=== PATIENT | female | born 1955 | race Caucasian/White ===

== ENCOUNTER 2020-06-06 06:41 | Outpatient (RCR) | payer MEDICARE, SELFPAY ==
[2020-06-05 12:56] LABS: Hemoglobin 5.2 g/dL (12.0-15.0)
[2020-06-05 12:57] LABS: Hematocrit 19.6 % (37.0-47.0)
[2020-06-06] VITALS (9 sets, daily range): BP systolic 155–180; BP diastolic 72–91; PULSE 89–97; RESP 14–16; TEMP 36.3–36.8; O2SAT 98–100
== END 2020-09-03 23:59 | disposition home or self-care (01) ==
LOC: ANHCPCTRAN 06:41
PROVIDERS: PCP Family Medicine Adolescent Medicine; Visit Provider Family Medicine Adolescent Medicine
DX: D50.9 Iron deficiency anemia, unspecified (principal); R06.02 Shortness of breath
CPT/HCPCS: 36415; 36430; 85014; 85018; 86850; 86900; 86901; 86920; J7050; P9016

== ENCOUNTER → 2020-06-23 14:20 | Outpatient (CLI) | payer MEDICARE, SELFPAY ==
--- NOTE | ~2020-06-23 | XR_ITS ---
EXAMINATION: XR chest 2V DATE: 06/23/2020 14:41 INDICATION: Shortness of breath. TECHNIQUE: Frontal and lateral views of the chest were obtained. COMPARISON: Chest CT 11/11/2017, chest single view 11/09/17 FINDINGS: There are small pleural effusions. There is mild atelectasis at left lung base. No pneumoth orax. Cardiomegaly is noted. There are surgical clips in the abdomen. IMPRESSION: 1. Small pleural effusions. 2. Cardiomegaly. Reviewed, dictated and finalized at location A. NISATIONAL PSYCHOLOGIST
== END ==
PROVIDERS: PCP Family Medicine Adolescent Medicine; Visit Provider Physician Assistant
DX: R06.02 Shortness of breath (principal); I51.7 Cardiomegaly; J90 Pleural effusion, not elsewhere classified
CPT/HCPCS: 71046

== ENCOUNTER 2021-06-26 07:29 | Outpatient (RCR) | payer MEDICARE, SELFPAY ==
[2021-06-25 08:49] LABS: Hematocrit 21.7 % (37.0-47.0)
[2021-06-25 12:08] LABS: Hemoglobin 6.3 g/dL (12.0-15.0)
[2021-06-26 09:05] VITALS: BP 162/71; PULSE 90; RESP 16; TEMP 36.4; O2SAT 100
[2021-06-26] MEDS: SODIUM CHLORIDE 0.9% IV 250 ML 30 ML IV CONT (09:05)
[2021-06-26 09:20] VITALS: BP 156/72; PULSE 98; RESP 16; TEMP 36.2; O2SAT 100
[2021-06-26 10:20] VITALS: BP 152/70; PULSE 82; RESP 16; TEMP 36.2; O2SAT 99
[2021-06-26 11:20] VITALS: BP 180/77; PULSE 82; RESP 16; TEMP 36.3; O2SAT 100
[2021-06-26 11:55] VITALS: BP 177/69; PULSE 78; RESP 16; TEMP 36.3; O2SAT 100
== END 2021-09-23 23:59 | disposition home or self-care (01) ==
LOC: ANHCPCTRAN 07:29
PROVIDERS: PCP Family Medicine Adolescent Medicine; Visit Provider Physician Assistant
DX: D64.9 Anemia, unspecified (principal)
CPT/HCPCS: 36415; 36430; 85014; 85018; 86850; 86900; 86901; 86920; J7050; P9016

== ENCOUNTER 2021-08-21 00:36 | Day surgery (SDC) | payer MEDICARE, SELFPAY ==
[2021-08-17 15:06] VITALS: BMI 29.2
--- NOTE | 2021-08-20 09:30 | P.PNAN_ITS ---
Anes - Initial Pre Proc Eval Procedure: Operation Date: 08/21/21 08:15 Proposed Procedures p Esophagogastroduodenoscopy & Colonoscopy - Mason Boo MD Date/Time: 08/20/21 09:30 Surgeon: Mason Boo MD Pre Op Diagnosis: ZOILA Patient Data Age: 65 Gender: F Height: 1.6 m Weight: 75 kg Allergies Allergy/AdvReac Type Severity Reaction Status Date / Time No Known Allergies Allergy Verified 08/21/21 06:43 Home Medications Medication Instructions Recorded Confirmed Type aspirin 81 mg tablet,delayed 81 mg PO HS 08/13/21 08/21/21 History release ferrous sulfate 27 mg iron tablet 65 mg PO DAILY tablet 08/13/21 08/21/21 History furosemide 40 mg tablet 40 mg PO QAM 08/13/21 08/21/21 History insulin glargine 100 unit/mL (3 20 unit SUBCUT QPM 08/13/21 08/21/21 History mL) subcutaneous pen lisinopril 40 mg tablet 40 mg PO HS 08/13/21 08/21/21 History metformin 500 mg tablet 2,000 mg PO QAM 08/13/21 08/21/21 History simvastatin 10 mg tablet 10 mg PO HS 08/13/21 08/21/21 History cyanocobalamin (vitamin B-12) 1,000 mcg PO HS 08/17/21 08/21/21 History [Vitamin B-12] melatonin 10 mg PO HS PRN 08/17/21 08/21/21 History Patient hx anesthesia problems: none Family hx anesthesia problems: none Results Review: All pre-operative results and documents have been reviewed as part of the pre-operative evaluation. [facility] Past Medical History Medical History (Updated 08/20/21 @ 09:31 by Tommy Reyes DO) Asthma CHF (congestive heart failure) Diabetes Former smoker Iron deficiency anemia Occult blood in stools Seizures Stroke Systolic heart failure Social History Social History (Updated 08/13/21 @ 13:30 by Madalyn Marquez CMA) Smoking packs per day: 3 Smoking cigarettes per day: 60.0 Years smoked: 36 Smoking pack-years: 108.00 Smoking status: Former smoker Tobacco type: cigarettes Alcohol intake: former Substance use: never Substance use type: does not use Living arrangements: alone Gender identity (if verbalized by the patient): Female Spiritual care concerns: No Anes - Eval Final PreProcedure Day of Procedure 08/20/21 09:30 Patient weight: overweight Heart: regular rate and rhythm Lungs: clear to auscultation and normal air movement Airway: Mallampati scale class II Neurological: alert and oriented Last oral intake: >/= 8 hours ASA classification: III Emergent: no Anesthetic plan: proceed Anesthesia type and monitoring: general GIVS and standard monitoring Results Review: All pre-operative results and documents have been reviewed as part of the pre-operative evaluation. Informed Consent: The patient's anesthetic plan and its attendant risks and benefits were discussed with the patient/family/POA. Questions were solicited and answers provided to the satisfaction of the patient/family/POA.
[2021-08-21 06:45] VITALS: BP 140/85; PULSE 104; RESP 17; TEMP 36; O2SAT 100; BMI 28.8
[2021-08-21] MEDS: LACTATED RINGERS 1,000 ML 150 ML IV CONT (07:04)
[2021-08-21 07:06] LABS: Glucose Point of Care 146 mg/dl (65-105)
--- NOTE | 2021-08-21 07:59 | PM.HPGS ---
History of Present Illness History of Present Illness Consent: Risks, benefits, and alternatives have been discussed and questions answered. Patient agrees to proceed with procedure. Chief complaint: ZOILA Narrative: Stacey Block is a 65 year old female with ZOILA with hb 5-6 requiring blood transfusion over a year ago, FOBT +, never had scopes Review of Systems Constitutional: Constitutional: Denies headache(s) and Denies weakness Eyes: Eyes: Denies blurry vision ENT: Reports Normal hearing present, Denies headache(s) and Denies neck pain Cardiovascular: Cardiovascular: Denies chest pain and Denies dyspnea Respiratory: Respiratory: Denies dyspnea Gastrointestinal: Gastrointestinal: Reports no additional gastrointestinal complaints Genitourinary: Genitourinary: Denies dysuria Musculoskeletal: Musculoskeletal: Denies neck pain Integumentary/Breasts: Skin/Breast: Denies dry skin Neurologic: Reports Normal hearing present, Denies headache(s) and Denies weakness Psychiatric: Psychiatric: Denies anxiety Endocrine: Endocrine: Denies change in body appearance Hematologic/Lymphatic: Hematologic/Lymphatic: Denies easy bleeding Allergic/Immunologic: Allergic/Immunologic: Denies urticaria PMFSH Past Medical History Medical History (Updated 08/20/21 @ 09:31 by Tommy Reyes, ) Asthma CHF (congestive heart failure) Diabetes Former smoker Iron deficiency anemia Occult blood in stools Seizures Stroke Systolic heart failure Social History Social History (Updated 08/13/21 @ 13:30 by Madalyn Marquez [facility]) Smoking packs per day: 3 Smoking cigarettes per day: 60.0 Years smoked: 36 Smoking pack-years: 108.00 Smoking status: Former smoker Tobacco type: cigarettes Alcohol intake: former Substance use: never Substance use type: does not use Living arrangements: alone Gender identity (if verbalized by the patient): Female Spiritual care concerns: No Meds Home Medications and Allergies Home Medications Medication Instructions Recorded Confirmed Type aspirin 81 mg tablet,delayed 81 mg PO HS 08/13/21 08/21/21 History release ferrous sulfate 27 mg iron tablet 65 mg PO DAILY tablet 08/13/21 08/21/21 History furosemide 40 mg tablet 40 mg PO QAM 08/13/21 08/21/21 History insulin glargine 100 unit/mL (3 20 unit SUBCUT QPM 08/13/21 08/21/21 History mL) subcutaneous pen lisinopril 40 mg tablet 40 mg PO HS 08/13/21 08/21/21 History metformin 500 mg tablet 2,000 mg PO QAM 08/13/21 08/21/21 History simvastatin 10 mg tablet 10 mg PO HS 08/13/21 08/21/21 History cyanocobalamin (vitamin B-12) 1,000 mcg PO HS 08/17/21 08/21/21 History [Vitamin B-12] melatonin 10 mg PO HS PRN 08/17/21 08/21/21 History Allergies Allergy/AdvReac Type Severity Reaction Status Date / Time No Known Allergies Allergy Verified 08/21/21 06:43 Vital Signs Vital Signs - 24 hr 08/21/21 06:45 Temperature 96.8 F L Pulse Rate 104 H Respiratory Rate 17 Blood Pressure 140/85 Pulse Oximetry 100 Exam Const: General: comfortable and no acute distress HENMT: General nose exam: Normal nares present Eyes: General: appearance normal, both eyes and all related structures Neck: Neck: no JVD Resp: Auscultation: clear to auscultation bilaterally Cardio: Rate: regular rate Rhythm: regular rhythm GI: Inspection: non-distended GI Palp: Yes Soft to palpation Skin: General skin exam: normal color Neuro: General: gait normal Speech: normal speech Extrem: General: normal to inspection Psych: Mental Status: mental status grossly normal Assessment and Plan Assessment and plan (1) Iron deficiency anemia: Code(s): D50.9 - Iron deficiency anemia, unspecified Status: Acute Assessment and Plan: egd and colonoscopy to assess if gi source of anemia (2) Occult blood in stools: Code(s): R19.5 - Other fecal abnormalities Status: Acute
[2021-08-21] MEDS: BENZOCAINE (*SP) 60 ML SPRAY CAN (HURRICAINE) 1 SPRAY MUCOUS MEM (08:03)
--- NOTE | 2021-08-21 08:28 | SUR.OPER ---
EGD START 805, END 808 COLONOSCOPY START 813, END 826
[2021-08-21 08:30] VITALS: BP 136/71; PULSE 87; RESP 20; O2SAT 100
[2021-08-21 08:40] VITALS: BP 132/56; PULSE 96; RESP 19; O2SAT 100
[2021-08-21 08:50] VITALS: BP 150/66; PULSE 91; RESP 20; O2SAT 99
--- NOTE | 2021-08-21 09:03 | SUR.PHASEII ---
RN updated family member
== END 2021-08-21 09:10 | disposition home or self-care (01) ==
PROVIDERS: PCP Family Medicine Adolescent Medicine; Visit Provider Internal Medicine Gastroenterology
PROC: 0DJ08ZZ Inspection of Upper Intestinal Tract, Via Natural or Artificial Opening Endoscopic (ICD-10-PCS; CPT 43235; principal; 2021-08-21 08:15)
DX: Z12.11 Encounter for screening for malignant neoplasm of colon (principal); D50.9 Iron deficiency anemia, unspecified; R19.5 Other fecal abnormalities; K57.30 Diverticulosis of large intestine without perforation or abscess without bleeding; K64.8 Other hemorrhoids; K29.50 Unspecified chronic gastritis without bleeding; I50.20 Unspecified systolic (congestive) heart failure; E11.9 Type 2 diabetes mellitus without complications; J45.909 Unspecified asthma, uncomplicated; Z86.73 Personal history of transient ischemic attack (TIA), and cerebral infarction without residual deficits; Z87.891 Personal history of nicotine dependence; Z79.82 Long term (current) use of aspirin; Z79.4 Long term (current) use of insulin; Z79.84 Long term (current) use of oral hypoglycemic drugs
CPT/HCPCS: 43239; G0121; 82948; 88305; 88342; J2704; J7120

== ENCOUNTER 2021-09-14 05:53 | Outpatient (CLI) | payer MEDICARE, SELFPAY ==
--- NOTE | 2021-09-14 06:41 | SUR.OPER ---
Patient brought to GI Lab. Instructions for patient undergoing Capsule Endoscopy reviewed with patient. Consent form signed. Sensor array applied to patient's abdomen and connected to recorded. Patient swallowed capsule with 8 ozs of water infused with Simethicone. Patient instructed they may have clear liquids at 0930 this AM and eat or drink at 1130 this AM. Patient instructed to return to GI Lab at 1500 this afternoon for removal of recording device and to call [phone] or to return to the hospital if any nausea and vomiting or abdominal pain is experienced.
--- NOTE | 2021-09-14 15:00 | SUR.PHASEII ---
Patient returned to the GI Lab at 1450 for recorder box removal. Patient voiced no complaints. States they have understanding of instructions. Patient left ambulatory.
== END 2021-09-14 05:54 | disposition home or self-care (01) ==
LOC: ANHENDO 05:54
PROVIDERS: PCP Family Medicine Adolescent Medicine; Visit Provider Internal Medicine Gastroenterology
PROC: 0DJ07ZZ Inspection of Upper Intestinal Tract, Via Natural or Artificial Opening (ICD-10-PCS; CPT 91110; principal; 2021-09-14 07:00)
DX: D50.9 Iron deficiency anemia, unspecified (principal); Z01.812 Encounter for preprocedural laboratory examination
CPT/HCPCS: 91110

== ENCOUNTER 2021-12-16 00:58 | Day surgery (SDC) | payer MEDICARE, SELFPAY ==
[2021-11-26 13:46] VITALS: BMI 30.4
[2021-12-16 06:37] VITALS: BP 186/63; PULSE 98; RESP 18; TEMP 36.2; O2SAT 100
[2021-12-16] MEDS: LACTATED RINGERS 1,000 ML 150 ML IV CONT (06:39)
[2021-12-16 06:48] LABS: Glucose Point of Care 309 mg/dl (65-105)
--- NOTE | 2021-12-16 07:22 | WPDANESEPPF ---
Anes - Initial Pre Proc Eval Procedure: Operation Date: 12/16/21 07:30 Proposed Procedures p Esophagogastroduodenoscopy With Enteroscopy - Mason Boo MD Date/Time: 12/16/21 07:22 Surgeon: Mason Boo MD Pre Op Diagnosis: AVM small bowel Patient Data Age: 65 Gender: F Height: 1.6 m Weight: 77.9 kg Last Vital Signs Temp 97.1 F L 12/16/21 06:37 Pulse 98 12/16/21 06:37 Resp 18 12/16/21 06:37 BP 186/63 H 12/16/21 06:37 Pulse Ox 100 12/16/21 06:37 Allergies Allergy/AdvReac Type Severity Reaction Status Date / Time No Known Allergies Allergy Verified 12/16/21 06:35 Home Medications Medication Instructions Recorded Confirmed Type aspirin 81 mg tablet,delayed 81 mg PO HS 08/13/21 11/26/21 History release ferrous sulfate 27 mg iron tablet 65 mg PO DAILY tablet 08/13/21 11/26/21 History metformin 500 mg tablet 2,000 mg PO QAM 08/13/21 11/26/21 History cyanocobalamin (vitamin B-12) 1,000 mcg PO HS 08/17/21 11/26/21 History [Vitamin B-12] melatonin 10 mg PO HS PRN 08/17/21 11/26/21 History furosemide 40 mg tablet 40 mg PO QAM #30 tablet 08/25/21 11/26/21 Rx omeprazole 20 mg capsule,delayed 20 mg PO DAILY 30 Days #30 cap 08/28/21 11/26/21 Rx release simvastatin 10 mg tablet 10 mg PO HS #90 tablet 09/15/21 11/26/21 Rx lisinopril 40 mg tablet 40 mg PO HS #90 tablet 10/06/21 11/26/21 Rx insulin glargine 100 unit/mL (3 20 unit SUBCUT QPM #18 ml 10/26/21 11/26/21 Rx mL) subcutaneous pen Laboratory Tests 12/16/21 06:45 POC Capillary Glucose 309 mg/dl H mg/dl (65-105) Patient hx anesthesia problems: none Family hx anesthesia problems: none Results Review: All pre-operative results and documents have been reviewed as part of the pre-operative evaluation. [facility] Past Medical History Medical History (Updated 08/20/21 @ 09:31 by Tommy Reyes DO) Asthma CHF (congestive heart failure) Diabetes Former smoker Iron deficiency anemia Occult blood in stools Seizures Stroke Systolic heart failure Social History Social History (Updated 08/13/21 @ 13:30 by Madalyn Marquez CMA) Smoking packs per day: 3 Smoking cigarettes per day: 60.0 Years smoked: 40 Smoking pack-years: 120.00 Smoking status: Former smoker Tobacco type: cigarettes Alcohol intake: former Substance use: never Substance use type: does not use Living arrangements: alone Gender identity (if verbalized by the patient): Female Spiritual care concerns: No Anes - Eval Final PreProcedure Day of Procedure 12/16/21 07:22 Patient weight: obese Heart: regular rate and rhythm Lungs: clear to auscultation Airway: Mallampati scale class II Neurological: alert and oriented Last oral intake: >/= 8 hours ASA classification: III Emergent: no Anesthetic plan: proceed Anesthesia type and monitoring: general GIVS and standard monitoring Results Review: All pre-operative results and documents have been reviewed as part of the pre-operative evaluation. Informed Consent: The patient's anesthetic plan and its attendant risks and benefits were discussed with the patient/family/POA. Questions were solicited and answers provided to the satisfaction of the patient/family/POA.
--- NOTE | 2021-12-16 07:23 | PM.HPGS ---
History of Present Illness History of Present Illness Consent: Risks, benefits, and alternatives have been discussed and questions answered. Patient agrees to proceed with procedure. Chief complaint: AVM small bowel Narrative: Stacey Block is a 65 year old female with chadwick, egd and colonoscopy negative to explain anemia, SB capsule endoscopy with AVM in proximal small bowel Review of Systems Constitutional: Constitutional: Denies headache(s) and Denies weakness Eyes: Eyes: Denies blurry vision ENT: Reports Normal hearing present, Denies headache(s) and Denies neck pain Cardiovascular: Cardiovascular: Denies chest pain and Denies dyspnea Respiratory: Respiratory: Denies dyspnea Gastrointestinal: Gastrointestinal: Reports no additional gastrointestinal complaints Genitourinary: Genitourinary: Denies dysuria Musculoskeletal: Musculoskeletal: Denies neck pain Integumentary/Breasts: Skin/Breast: Denies dry skin Neurologic: Reports Normal hearing present, Denies headache(s) and Denies weakness Psychiatric: Psychiatric: Denies anxiety Endocrine: Endocrine: Denies change in body appearance Hematologic/Lymphatic: Hematologic/Lymphatic: Denies easy bleeding Allergic/Immunologic: Allergic/Immunologic: Denies urticaria PMFSH Past Medical History Medical History (Updated 12/16/21 @ 07:24 by aMson Boo MD) Asthma AVM (arteriovenous malformation) of small bowel, acquired CHF (congestive heart failure) Diabetes Former smoker Iron deficiency anemia Occult blood in stools Seizures Stroke Systolic heart failure Social History Social History (Updated 08/13/21 @ 13:30 by Madalyn Marquez CMA) Smoking packs per day: 3 Smoking cigarettes per day: 60.0 Years smoked: 40 Smoking pack-years: 120.00 Smoking status: Former smoker Tobacco type: cigarettes Alcohol intake: former Substance use: never Substance use type: does not use Living arrangements: alone Gender identity (if verbalized by the patient): Female Spiritual care concerns: No Meds Home Medications and Allergies Home Medications Medication Instructions Recorded Confirmed Type aspirin 81 mg tablet,delayed 81 mg PO HS 08/13/21 11/26/21 History release ferrous sulfate 27 mg iron tablet 65 mg PO DAILY tablet 08/13/21 11/26/21 History metformin 500 mg tablet 2,000 mg PO QAM 08/13/21 11/26/21 History cyanocobalamin (vitamin B-12) 1,000 mcg PO HS 08/17/21 11/26/21 History [Vitamin B-12] melatonin 10 mg PO HS PRN 08/17/21 11/26/21 History furosemide 40 mg tablet 40 mg PO QAM #30 tablet 08/25/21 11/26/21 Rx omeprazole 20 mg capsule,delayed 20 mg PO DAILY 30 Days #30 cap 08/28/21 11/26/21 Rx release simvastatin 10 mg tablet 10 mg PO HS #90 tablet 09/15/21 11/26/21 Rx lisinopril 40 mg tablet 40 mg PO HS #90 tablet 10/06/21 11/26/21 Rx insulin glargine 100 unit/mL (3 20 unit SUBCUT QPM #18 ml 10/26/21 11/26/21 Rx mL) subcutaneous pen Allergies Allergy/AdvReac Type Severity Reaction Status Date / Time No Known Allergies Allergy Verified 12/16/21 06:35 Vital Signs Vital Signs - 24 hr 12/16/21 06:37 Temperature 97.1 F L Pulse Rate 98 Respiratory Rate 18 Blood Pressure 186/63 H Pulse Oximetry 100 Exam Const: General: comfortable and no acute distress HENMT: General nose exam: Normal nares present Eyes: General: appearance normal, both eyes and all related structures Neck: Neck: no JVD Resp: Auscultation: clear to auscultation bilaterally Cardio: Rate: regular rate Rhythm: regular rhythm GI: Inspection: non-distended GI Palp: Yes Soft to palpation Skin: General skin exam: normal color Neuro: General: gait normal Speech: normal speech Extrem: General: normal to inspection Psych: Mental Status: mental status grossly normal Assessment and Plan Assessment and plan (1) Iron deficiency anemia: Code(s): D50.9 - Iron deficiency anemia, unspecified
[2021-12-16 07:49] VITALS: BP 166/85; PULSE 100; RESP 20; O2SAT 100
[2021-12-16 07:59] VITALS: BP 155/69; PULSE 92; RESP 18; O2SAT 100
[2021-12-16 08:09] VITALS: BP 155/69; PULSE 98; RESP 18; O2SAT 100
[2021-12-16 08:19] LABS: Glucose Point of Care 302 mg/dl (65-105)
== END 2021-12-16 08:27 | disposition home or self-care (01) ==
PROVIDERS: PCP Family Medicine Adolescent Medicine; Visit Provider Internal Medicine Gastroenterology
PROC: 0DJ08ZZ Inspection of Upper Intestinal Tract, Via Natural or Artificial Opening Endoscopic (ICD-10-PCS; CPT 43235; principal; 2021-12-16 07:30)
DX: D50.9 Iron deficiency anemia, unspecified (principal); Q27.33 Arteriovenous malformation of digestive system vessel; R19.5 Other fecal abnormalities; Z79.84 Long term (current) use of oral hypoglycemic drugs; Z79.82 Long term (current) use of aspirin; I11.0 Hypertensive heart disease with heart failure; I50.21 Acute systolic (congestive) heart failure; E11.9 Type 2 diabetes mellitus without complications; G40.909 Epilepsy, unspecified, not intractable, without status epilepticus; Z87.891 Personal history of nicotine dependence; E66.9 Obesity, unspecified; Z68.30 Body mass index [BMI] 30.0-30.9, adult
CPT/HCPCS: 43255; 82948; J2704; J7120

== ENCOUNTER → 2022-05-17 14:12 | Outpatient (CLI) | payer MEDICARE, SELFPAY ==
--- NOTE | ~2022-05-17 | DEXA_ITS ---
Bone Density Report Name: ARGENIS LUCAS Age: 66 Sex: Female Ethnicity: White Date of : 1955 Indication: osteopenia; height loss; postmenopausal Referring Provider: AFSHIN MANCILLA Study: Bone densitometry was performed. Exam Date: May 17, 2022 Accession number: [id number] Bone Density: Region BMD T-score Z-score Classification AP Spine (L1-L4) 0.975 -0.7 1.3 Normal Femoral Neck (Left) 0.621 -2.0 -0.4 Osteopenia Total Hip (Left) 0.785 -1.3 0.1 Osteopenia Femoral Neck (Right) 0.560 -2.6 -1.0 Osteoporosis Total Hip (Right) 0.822 -1.0 0.4 Normal Total Hip Mean 0.804 -1.2 0.3 Osteopenia World Health Organization criteria for BMD impression classify patients as: Normal (T-score at or above -1.0), Osteopenia (T-score between -1.0 and -2.5), or Osteoporosis (T-score at or below -2.5). 10-year Fracture Risk: FRAX not reported because: Some T-score for Spine Total or Hip Total or Femoral Neck at or below -2.5 Previous Exams: Region Exam Age BMD T-score BMD Change BMD Change Date g/cm2 vs Baseline vs Previous AP Spine(L1-L4) 05/17/2022 66 0.975 -0.7 0.011 0.011 06/29/2013 57 0.964 -0.8 Total Hip(Left) 05/17/2022 66 0.785 -1.3 0.036* 0.036* 06/29/2013 57 0.749 -1.6 Total Hip(Right) 05/17/2022 66 0.822 -1.0 0.027 0.027 06/29/2013 57 0.795 -1.2 *Denotes significance at 95% confidence level, LSC for AP Spine = 0.022 g/cm2, LSC for Total Hip = 0.027 g/cm2 Clinical Information Provided by Patient: Has used the following medications: Vitamin D Patient maximum height was 63 Menopause Age: 39 No regular weight bearing exercise Drinks caffeinated beverages Onset of menses at age 12 Number of children 1 Impression: The patient has osteoporosis, based on the Right Femoral Neck T-score. No significant bone loss was observed. Discussion: INCREASED RISK OF FRACTURE. BONE DENSITY IS UNDESIRABLY LOW AT ONE OR MORE SKELETAL SITES, CONSISTENT WITH POSTMENOPAUSAL OSTEOPOROSIS. This patient's lowest T-score meets the World Health Organization's (WHO) criteria for osteoporosis at one or more sites (T-score -2.5 or below). In untreated patients, the risk of osteoporotic fracture increases approximately two-fold for each 1.0 SD decrease in T-score. Low bone density is not the only risk factor for fracture; also consider factors such as patient's age, frailty or poor health, risk of falling,
== END ==
PROVIDERS: PCP Physician Assistant; Visit Provider Physician Assistant
DX: M85.80 Other specified disorders of bone density and structure, unspecified site (principal); Z78.0 Asymptomatic menopausal state; M85.852 Other specified disorders of bone density and structure, left thigh; M85.851 Other specified disorders of bone density and structure, right thigh; M81.0 Age-related osteoporosis without current pathological fracture
CPT/HCPCS: 77080

== ENCOUNTER → 2022-08-24 12:41 | Outpatient (CLI) | payer MEDICARE, SELFPAY ==
--- NOTE | ~2022-08-24 | US_ITS ---
EXAMINATION: US renal BI DATE: 08/24/2022 12:59 INDICATION: Chronic kidney disease stage IIIB. TECHNIQUE: Multiple ultrasound grayscale images of the kidneys were obtained. COMPARISON: None. FINDINGS: The right kidney measures 9.9 x 5.3 x 5.5 cm. The left kidney measures 11.8 x 5.6 x 5.5 cm. The kidne ys demonstrate normal parenchymal echogenicity. There is a 1.9 cm hypoechoic mass in right kidney. Th ere is no hydronephrosis. The bladder is normal. There is diffuse hepatic steatosis. IMPRESSION: 1. Normal kidney sizes. No hydronephrosis. 2. 1.9 cm hypoechoic mass in right kidney, which may be a cyst or less likely a neoplasm. Abdomen MRI without and with contrast is recommended. 3. Diffuse hepatic steatosis. Reviewed, dictated and finalized at location A. [employer]
== END ==
PROVIDERS: PCP Family Medicine Adolescent Medicine; Visit Provider Internal Medicine Nephrology
DX: I12.9 Hypertensive chronic kidney disease with stage 1 through stage 4 chronic kidney disease, or unspecified chronic kidney disease (principal); N18.32 Chronic kidney disease, stage 3b; E11.29 Type 2 diabetes mellitus with other diabetic kidney complication; K76.0 Fatty (change of) liver, not elsewhere classified
CPT/HCPCS: 76775

== ENCOUNTER → 2023-01-26 12:22 | Outpatient (CLI) | payer MEDICARE, SELFPAY ==
--- NOTE | ~2023-01-26 | MR_ITS ---
EXAMINATION: MR abdomen wo/w con DATE: 01/26/2023 13:54 INDICATION: 1.9 cm hypoechoic right renal mass on prior ultrasound. TECHNIQUE: Magnetic resonance imaging (MRI) of the abdomen was performed without and with 15 mL Multi naheed intravenous contrast. Sequences included coronal T2-weighted SS-FSE, coronal and axial FS 2D-F IESTA, axial STIR FSE, axial T2-weighted SS-FSE, axial T2-weighted FS SS-FSE, axial diffusion-weighte d SE, axial dual-echo T1-weighted FSPGR, and axial and coronal T1-weighted LAVA. Postcontrast axial T 1-weighted LAVA images were obtained in a time course. Postcontrast coronal T1-weighted LAVA images w ere obtained. COMPARISON: Ultrasound dated 08/24/2022 FINDINGS: Heart size is normal. No pericardial or pleural effusion. Gallbladder is nonvisualized and likely florence gically absent. Liver, spleen, pancreas and left adrenal gland are normal. 2.0 cm right adrenal mass with prominent signal dropout on opposed phase images consistent with hemangioma with increased intra cellular lipid. There are couple T2 hyperintense nonenhancing cyst at the lower pole of the right kid merlin the larger measuring 1.9 cm and the second immediately adjacent cyst measuring 9 mm in maximal di ameters. This corresponds to the lesion of concern identified on prior ultrasound. There are a few ad ditional <5 mm T2 hyperintense nonenhancing cysts in both kidneys. Visualized portion of the bowels i ncluding the appendix are normal. No pathologically enlarged abdominal or upper pelvic lymphadenopath y. Mild deformities of the infrarenal aorta with intraluminal ulcerated atherosclerotic plaque. Mild thoracic and lumbar spondylosis. IMPRESSION: 1. Lesion of concern at the lower pole of the right kidney corresponds to the largest of several bila teral simple appearing renal cysts. Reviewed, dictated and finalized at location A. IMPRESSION: 1. Lesion of concern at the lower pole of the right kidney corresponds to the l argest of several bilateral simple appearing renal cysts.
== END ==
PROVIDERS: PCP Internal Medicine Nephrology; Visit Provider Internal Medicine Nephrology
DX: N28.89 Other specified disorders of kidney and ureter (principal)
CPT/HCPCS: 74183; A9577

== ENCOUNTER 2024-07-30 11:22 | Outpatient (CLI) | payer MEDICARE, SELFPAY ==
[2024-07-30 11:41] LABS: Basophils Absolute Auto 0.1 K/mm3 (0.0-0.1); Basophils Percent Auto 0.7 % (0.2-1.2); Eosinophils Absolute Auto 0.2 K/mm3 (0-0.3); Eosinophils Percent Auto 2.4 % (0-4.4); Hematocrit 33.3 % (37.0-47.0); Hemoglobin 10.6 g/dL (12.0-15.0); Immature Granulocyte Absolute 0.03 K/mm3 (0.00-0.031); Immature Granulocyte Percent A 0.3 % (0-0.5); Lymphocytes Absolute Auto 1.35 K/mm3 (0.9-3.2); Lymphocytes Percent Auto 14.7 % (18.3-44.2); Mean Corpuscular HGB Conc 31.8 g/dl (32-36); Mean Corpuscular Hemoglobin 29.4 pg (26-34); Mean Corpuscular Volume 92.5 fl (80-100); Mean Platelet Volume 9.1 fl (7.4-10.4); Monocytes Absolute Auto 0.6 K/mm3 (0.1-0.6); Monocytes Percent Auto 6.6 % (2.6-8.5); Neutrophils Absolute Auto 6.9 K/mm3 (1.3-6.7); Neutrophils Percent Auto 75.3 % (45.5-73.1); Platelet Count Result 335 k/mm3 (150-375); Reticulocyte Hemoglobin Conten 33.5 pg (28.2-36.6); Reticulocyte Percent 2.21 % (0.7-4.3); Reticulocytes Absolute 0.08 10^6/uL (0.02-0.10); White Blood Count 9.2 K/mm3 (4.5-10.0)
[2024-07-30 14:22] LABS: Iron 132 ug/dL (37-170)
[2024-07-30 14:24] LABS: Alanine Aminotransferase 18 U/L (6-35); Albumin Level 3.6 g/dL (3.5-5.1); Alkaline Phosphatase 107 U/L (38-126); Anion Gap 2 mmol/L (4-12); Aspartate Amino Transferase 24 U/L (14-36); Bilirubin,Total 0.4 mg/dL (0.2-1.3); Blood Urea Nitrogen 38 mg/dL (7-17); Calcium 9.6 mg/dL (8.4-10.2); Carbon Dioxide 28 mmol/L (22-30); Chloride 107 mmol/L (98-107); Estimated Glomerular Filt Rate 23; Glucose 191 mg/dL (65-110); Potassium 5.1 mmol/L (3.4-5.0); Sodium 137 mmol/L (137-145)
[2024-07-30 14:34] LABS: Percent Iron Saturation 40 % (20-50)
[2024-07-30 16:06] LABS: Folic Acid > 20.0 ng/mL (2.76->20)
[2024-07-30 16:28] LABS: IFOB Positive Control Positive; Immunochemical Fecal Occult Bl Positive (N)
[2024-08-03 09:13] LABS: Methylmalonic Acid 1107 nmol/L (69-390)
[2024-08-03 09:24] LABS: Soluble Transferrin Receptor 1.66 mg/L (0.76-1.76)
== END 2024-07-30 11:23 | disposition home or self-care (01) ==
LOC: ANHLAB 11:23
PROVIDERS: PCP Family Medicine Adolescent Medicine; Visit Provider Internal Medicine Hematology & Oncology
DX: D50.9 Iron deficiency anemia, unspecified (principal)
CPT/HCPCS: 36415; 80053; 82274; 82607; 82728; 82746; 83540; 83550; 83921; 84238; 85025; 85046

== ENCOUNTER 2025-05-08 14:57 | Outpatient (CLI) | payer MEDICARE, SELFPAY ==
--- OUTSIDE RECORDS SUMMARY | 2025-05-08 15:00 | XMS_ITS | Clinical Summary ---
Author Organization [facility] (Formerly [facility])[3] [facility] Address [address] [place] [address] Care Team Providers Care Farm Equipment Maintenance Supervisor Name Role Phone Earnest Luther MD Primary Care Provider [phone] Allergies No known active allergies Medications metFORMIN (GLUCOPHAGE) 500 mg tablet Take 500 mg by mouth 4 times daily. Active omeprazole (PriLOSEC) 20 mg Capsule, Delayed Release(E.C.) Take 20 mg by mouth daily. Active furosemide (LASIX) 40 mg tablet Take 40 mg by mouth daily in the morning. Active ferrous sulfate 325 mg (65 mg iron) tablet Take 325 mg by mouth daily. Active lisinopriL (PRINIVIL) 40 mg tablet Take 40 mg by mouth daily at bedtime. Active aspirin (ECOTRIN EC) 81 mg Tablet, Delayed Release (E.C.) Take 81 mg by mouth daily. Active atorvastatin (LIPITOR) 20 mg tablet Take 20 mg by mouth daily. Active Lantus Solostar U-100 Insulin 100 unit/mL (3 mL) solution for injection INJECT 25 UNITS SUBCUTANEOUSLY ONCE DAILY IN THE EVENING Active multivitamin (DAILY-TIERA) tablet Take 1 Tablet by mouth daily. Active CHOLECALCIFERO L, VITAMIN D3, ORAL Take by mouth. Activ e cyanocobalamin (VITAMIN B-12) 100 mcg tablet Take 100 mcg by mouth daily. Active Active Problems No known active problems Encounters Date Type Department Care Team Description 04/30/2025 External Device Data ST[facility] ABSTRACTION Provider, Abstract 04/23/2025 External Device Data ST[facility] ABSTRACTION Provider, Abstract 04/16/2025 External Device Data [facility] ABSTRACTION Provider, Abstract 02/20/2025 External Device Data [facility] ABSTRACTION Provider, Abstract 02/19/2025 External Device Data ST[facility] ABSTRACTION Provider, Abstract from Last 3 Months Family History Medical History Relation Name Comments No Known Problems Child Diabetes Father Cancer Mother Heart Disease Mother No Known Problems Sister Relation Name Status Comments Child Alive Father Mother Sister Alive Social History Tobacco Use Types Packs/Day Years Used Date Smoking Tobacco: Former Cigarettes 2 40 Q uit: 07/30/2012 Smokeless Tobacco: Never Alcohol Use Standard Drinks/Week Comments Never 0 (1 standard drink = 0.6 oz pur e alcohol) Comments No Sex and Gender Information Value Date Recorded Sex Assigned at Not on file Legal Sex Female 1:06 PM ISOTOPE TECHNICIAN Gender Identity Not on file Sexual Orientation Not on file Last Filed Vital Signs Vital Sign Reading Time Taken Comments Blood Pressure 180/98 01/17/2025 2:32 PM CDT Pulse 101 01/17/2025 2:30 PM CDT Temperature 36.8 C (98.3 F) 01/17/2025 2:30 PM CDT Respiratory Rate 15 01/17/2025 2:30 PM CDT Oxygen Saturation 97% 01/17/2025 2:30 PM CDT Inhaled Oxygen Concentration - - Weight 80 kg (176 lb 6.4 oz) 01/17/2025 2:30 PM CDT Height 157.5 cm (5' 2) 07/30/2024 10:43 AM ISOTOPE TECHNICIAN Body Mass Index 32.26 07/30/2024 10:43 AM ISOTOPE TECHNICIAN Plan of Treatment Upcoming Encounters Date Type Department Care Team (Late st Contact Info) Description 05/08/2025 3:30 PM CDT Office Visit [facility] (Former[facility]3] Oncology and Hematology [facility] [address] [facility] [address] [place] [address] Jae Malik MD [address] [place] [address] Health Maintenance Due Date Last Done Comments Pre-Diabetes and Diabetes Screening 1954 DTAP/TDAP/TD VACCINES (1 - Tdap) 1973 PNEUMOCOCCAL VACCINE 50+ YEA RS (1 of 2 - PCV) 1973 Traditional Medicare (ACO) A nnual Wellness Visit 1973 BREAST CANCER SCREENING 1994 FIT-DNA Q 3 years 12/24/1999 FIT/FOBT Q 1 year 12/24/1999 Flex Sig/CT Colonography Q 5 years 12/24/1999 Lung Cancer Screening 2004 ZOSTER VACCINE (1 of 2) 2004 INFLUENZA VACCINE (#1) 2025 OSTEOPOROSIS SCREENING 05/17/2027 05/17/2022 RSV VACCINE (60+ or ) (1 - 1-dose 75+ series) 2029 COLORECTAL SCREENING 08/21/2031 08/21/2021, 08/21/19 22 Colorectal Cancer Screening 08/21/2031 Procedures Procedure Name Priority Date/Time Associated Diagnosis Comments VITAMIN B12 AND FOLATE Routine 05/02/2025 9:43 AM CDT Chronic anemia IRON, TIBC, AND PERCENT SATURATION Routine 05/02/2025 9:43 AM CDT Chronic anemia FERRITIN Routine 05/02/2025 9:43 AM CDT Chronic anemia from Last 3 Months Results * VITAMIN B12 AND FOLATE (05/02/2025 9:43 AM CDT) Pathologist [facility] VITAMIN B12 1035 200 - 1100 pg/mL [email or web address] FOLATE, SERUM 14.0 ng/mL [facility] Comment: Reference Range Low: <3.4 Borderline: 3.4-5.4 Normal: >5.4 Test Performed at: [facility] [address] [place] [address] Pura Bang MD Blood 05/02/2025 9:43 AM CDT 05/02/2025 9:44 AM CDT us Jae Malik MD CHEMISTRY ORDERABLES Final Resu lt [facility] [phone] [facility] [address] [place] [address] * IRON, TIBC, AND PERCENT SATURATION (05/02/2025 9:43 AM CDT) IRON 55 45 - 160 mcg/dL [facility] TIBC 350 250 - 450 mcg/dL (calc) [facility] IRON % SATURATION 16 16 - 45 % (calc) [facility] Comment: Test Performed at: [facility] [address] [place] [address] Pura Bang MD Blood 05/02/2025 9:43 AM CDT 05/02/2025 9:44 AM CDT Jae Malik MD CHEMISTRY ORDERABLES Final Resu lt Performing Organization Address [facility] Co de Phone Number [facility] [phone] [facility] [address] [place] [phone] * FERRITIN (05/02/2025 9:43 AM CDT) FERRITIN 16 16 - 288 ng/mL [facility] Comment: Test Performed at: [facility] [address] [place] [phone] TaylorMarly Bang MD Blood 05/02/2025 9:43 AM CDT 05/02/2025 9:44 AM CDT Jae Malik MD CHEMISTRY ORDERABLES Final Resu lt Performing Organization Address City/[facility]/ZIP Co de Phone Number [facility] [phone] [facility] [phone] from Last 3 Months Insurance MEDICARE PART A AND B [employer] MEDICARE SUPP AESSI Care Teams Farm Equipment Maintenance Supervisor Relationship Specialty Start Date End Date Earnest Luther MD PCP - General Family Practice 08/24/24
--- OUTSIDE RECORDS SUMMARY | 2025-05-08 15:00 | XMS_ITS | Encounter Summary ---
Author Organization [facility] Address [address] [place] [address] Care Team Providers Care District Operations Manager Name Role Phone Earnest Luther MD Primary Care Prov ider Encounter Details Date Type Department Care Team (Late st Contact Info) Description 11/11/2017 Orders Only [facility] Health Information Management [address] [place] [phone] Scanning, Provider Social History Tobacco Use Types Packs/Day Years Used Date Smoking Tobacco: Never Assessed Comments Unknown Sex and Gender Information Value Date Recorded Sex Assigned at Not on file Legal Sex Female 11:54 AM CDT Gender Identity Not on file Sexual Orientation Not on file documented as of this encounter Plan of Treatment Not on file documented as of this encounter Procedures Procedure Name Priority Date/Time Associated Diagnosis Comments CARDIOLOGY DOCUMENT SCAN 11/11/2017 documented in this encounter Results * Cardiology Document Scan (11/11/2017) Anatomical Region Laterality Modality Other us Provider Scanning CV CARDIAC SERVICES PROCEDURES Final Result documented in this encounter Visit Diagnoses Not on filedocumented in this encounter Care Teams District Operations Manager Relationship Specialty Start Date End Date Earnest Luther MD PCP - General Family Medicine 08/08/17 documented as of this encounter
--- OUTSIDE RECORDS SUMMARY | 2025-05-08 15:00 | XMS_ITS | Clinical Summary ---
Author Organization [facility] [address] Address [address] [place] [address] Care Team Providers Care Night Time Babysitter Name Role Phone Eanrest Luther MD Primary Care Prov ider Allergies No known active allergies Medications Lantus U-100 Insulin 100 unit/mL injection INJECT 10 UNITS SUBCUTANEOUSLY AT BEDTIME 0 Active lisinopriL (PRINIVIL,ZEST RIL) 40 mg tablet Take 40 mg by mouth daily 0 Active simvastatin (ZOCOR) 10 mg tablet Take 10 mg by mouth daily 0 Active metFORMIN XR (GLUCOPHAGE XR) 500 mg 24 hr tablet Take 1,000 mg by mouth 2 (two) times a day 0 Active levETIRAcetam (KEPPRA) 500 mg tablet Take 1,000 mg by mouth 2 (two) times a day 0 Active glimepiride (AMARYL) 2 mg tablet Take 2 mg by mouth 2 (two) times a day 0 Active fenofibrate (TRIGLIDE) 160 mg tablet Take 160 mg by mouth daily 0 Active diphenhydrAMIN E-acetaminophe n (TYLENOL PM) 25-500 mg tablet Take 1 tablet by mouth nightly Active cyanocobalamin (Vitamin B-12) 100 mcg tabletIndicati ons:Prevention of Vitamin B12 Deficiency Take 100 mcg by mouth daily Active ferrous sulfate 325 mg (65 mg of elemental iron) tabletIndicati ons:Iron Deficiency Anemia Take 65 mg of elemental iron by mouth daily with breakfast Active aspirin 81 mg enteric coated tablet Take 81 mg by mouth daily Active Active Problems Problem Noted Date Diagnosed Date Chronic combined systolic an d diastolic congestive heart failure 08/11/2020 Essential hypertension 08/11/2020 Mixed hyperlipidemia 08/11/2020 Anemia 08/11/2020 Surgical History Surgery Date Site/Laterality Comments CHOLECYSTECTOMY Medical History Medical History Date Comments Hypertension Hyperlipidemia Diabetes mellitus Gallstones Stroke (HCC) Seizure (HCC) Anemia Family History Medical History Relation Name Comments Diabetes Father Hyperlipidemia Father Stroke Father Cancer Mother Heart disease Mother Relation Name Status Comments Father (Age 80) Mother (Age 78) Sister Alive Social History Tobacco Use Types Packs/Day Years Used Date Smoking Tobacco: Former Cigarettes Q uit: 2008 Smokeless Tobacco: Never Alcohol Use Standard Drinks/Week Comments Not Currently 0 (1 standard drink = 0.6 oz pur e alcohol) Personal Safety Answer Date Recorded Getting School Help Needed Not on file 10/22 Comments Unknown Sex and Gender Information Value Date Recorded Sex Assigned at Not on file Legal Sex Female 11:54 AM CDT Gender Identity Not on file Sexual Orientation Not on file Obstetrics History Last Filed Vital Signs Vital Sign Reading Time Taken Comments Blood Pressure 122/82 08/11/2020 9:17 AM BEVERAGE SERVER Pulse 86 08/11/2020 9:17 AM BEVERAGE SERVER Temperature 36.3 C (97.3 F) 07/02/2020 2:56 PM BEVERAGE SERVER Respiratory Rate - - Oxygen Saturation 98% 08/11/2020 9:17 AM BEVERAGE SERVER Inhaled Oxygen Concentration - - Weight 74.4 kg (164 lb) 08/11/2020 9:17 AM BEVERAGE SERVER Height 157.5 cm (5' 2) 08/11/2020 9:17 AM BEVERAGE SERVER Body Mass Index 30 08/11/2020 9:17 AM BEVERAGE SERVER Plan of Treatment Not on file Insurance MEDICARE AETNA SENIOR SUPPLEMENT Care Teams Night Time Babysitter Relationship Specialty Start Date End Date Earnest Luther MD PCP - General Family Medicine 08/08/17
--- OUTSIDE RECORDS SUMMARY | 2025-05-08 15:00 | XMS_ITS | Clinical Summary ---
Author Organization [facility] Address [address] [place] [phone] Phone Care Team Providers Care Ux Design Manager Name Role Phone Earnest Peter MD Primary Care Provider [phone] Allergies No known active allergies Medications atorvastatin (LIPITOR) 20 MG tablet Take 20 mg by mouth 1 (one) time each day 2 Active furosemide (LASIX) 40 MG tablet TAKE 1 TABLET BY MOUTH ONCE DAILY IN THE MORNING 2 Active Lantus SoloStar 100 UNIT/ML injection INJECT 20 UNITS SUBCUTANEOUSLY ONCE DAILY IN THE EVENING 2 Active lisinopril (PRINIVIL) 40 MG tablet Take 40 mg by mouth every night 2 Active metFORMIN (GLUCOPHAGE) 500 MG tablet TAKE 4 TABLETS BY MOUTH ONCE DAILY IN THE MORNING 2 Active omeprazole (PriLOSEC) [address] capsule Take 20 mg by mouth 1 (one) time each day 2 Active triamcinolone (KENALOG) 0.1 % cream APPLY TOPICALLY ON SKIN LESIONS TWICE DAILY NEEDED 2 Active aspirin (ST RUEL) 81 MG EC tablet Take 81 mg by mouth daily Active cyanocobalamin (VITAMIN B-12) 100 MCG tablet Take 100 mcg by mouth daily Active diphenhydrAMIN E-acetaminophe n (TYLENOL PM) 25-500 MG per tablet Take 1 tablet by mouth daily Active ferrous sulfate 325 (65 Fe) MG tablet Take by mouth daily Active Active Problems Problem Noted Date Diagnosed Date Anemia 08/11/2020 Chronic combined systolic an d diastolic congestive heart failure 08/11/2020 Essential hypertension 08/11/2020 Mixed hyperlipidemia 08/11/2020 Family History Medical History Relation Comments Aneurysm Father Diabetes mellitus Father Hyperlipidemia Father Stroke Father Cancer Mother Heart disease Mother Relation Status Comments Father Mother Social History Tobacco Use Types Packs/Day Years Used Date Smoking Tobacco: Former Cigarettes 3 40 Smokeless Tobacco: Never Alcohol Use Standard Drinks/Week Comments Not Currently 0 (1 standard drink = 0.6 oz pur e alcohol) former use Comments Unknown Sex and Gender Information Value Date Recorded Sex Assigned at Not on file Legal Sex Female 2:04 PM MDT Gender Identity Not on file Sexual Orientation Not on file Last Filed Vital Signs Vital Sign Reading Time Taken Comments Blood Pressure 126/80 05/20/2022 9:17 AM CDT Pulse - - Temperature 36.2 C (97.1 F) 05/20/2022 9:17 AM CDT Respiratory Rate 18 05/20/2022 9:17 AM CDT Oxygen Saturation - - Inhaled Oxygen Concentration - - Weight 79.8 kg (176 lb) 05/20/2022 9:17 AM CDT Height 157.5 cm (5' 2) 05/20/2022 9:17 AM CDT Body Mass Index 32.19 05/20/2022 9:17 AM CDT Plan of Treatment Health Maintenance Due Date Last Done Comments Pneumococcal PPSV23/PCV13 65 + Years / Low and Medium Risk (1 of 2 - PCV) 2004 Influenza Vaccine (#1) 2025 Insurance MEDICARE AET Care Teams Ux Design Manager Relationship Specialty Start Date End Date Earnest Peter MD [address] [phone] PCP - General Family Medicine 04/29/22
[2025-05-08 15:15] LABS: Hematocrit 30.7 % (37.0-47.0); Hemoglobin 9.6 g/dL (12.0-15.0); Mean Corpuscular HGB Conc 31.3 g/dl (32-36); Mean Corpuscular Hemoglobin 28.5 pg (26-34); Mean Corpuscular Volume 91.1 fl (80-100); Platelet Count Result 364 k/mm3 (150-375); Red Blood Count 3.37 M/mm3 (4.2-5.4); White Blood Count 7.5 K/mm3 (4.5-10.0)
== END 2025-05-08 14:58 | disposition home or self-care (01) ==
LOC: ANHLAB 14:58
PROVIDERS: PCP Family Medicine Adolescent Medicine; Visit Provider Internal Medicine Hematology & Oncology
DX: D64.9 Anemia, unspecified (principal)
CPT/HCPCS: 36415; 85027